=== PATIENT | female | born 1955 | race Caucasian/White ===

== ENCOUNTER 2017-08-15 13:45 | Outpatient (CLI) | payer MEDICAID ==
[~2017-08-15 13:45] MED LIST: ALPRAZOLAM1 MG ORAL; LEVOTHYROXINE100 MCG ORAL; QUETIAPINE FUM100 MG ORAL
[2017-08-15 14:00] VITALS: BP 113/80
--- NOTE | 2017-08-16 16:33 | GI Initial Consult Note ---
History of Present Illness General Date patient seen: August 15, 2017 Time patient seen: 15:00 Referring physician: JENNY Reason for Consultation: PANCREATIC CYST Present Illness HPI Patient is a 61 year old female with history of pancreatic mass, 2.2 to 2.4 mm cystic lesion. Hx of Hep C treatment, Yessenia x 2 mos apr 2015. Presents today with abdominal pain accompanied with some nausea. Denies any unintentional weight loss or changes in dietary habits. No signs of abuse or neglect. Patient is not fall risk. Home Meds Reported Medications Levothyroxine Sodium* (LEVOTHYROXINE SODIUM*) 100 Mcg Tablet, 150 ORAL DAILY, TAB Take in the morning on an empty stomach, at least 30 minutes before food. 01/12/16 Alprazolam* (XANAX*) 1 Mg Tablet, ORAL TID, TAB 01/12/16 Discontinued Reported Medications Quetiapine Fumarate* (SEROQUEL*) 100 Mg Tablet, ORAL DAILY, TAB 01/12/16 Med list reviewed/reconciled: Yes Allergies: Coded Allergies: No Known Allergies (Unverified , 01/12/16) Patient History PMH Narrative depression anxiety insomnia Hep C 1993 hypothyroidism s/p blood transfusion for labor bleed - 1993 PSHx tonsillectomy partial hysterectomy Family History Narrative Father - pancreatic CA, passed at age 66. Social History Narrative denies smoking - quit 45 years ago. ETOH 2/w medical MJ Review of Systems All Other Systems: negative except mentioned in HPI Physical Exam Vital Signs Date Time Temp Pulse Resp B/P (MAP) Pulse Ox O2 Delivery O2 Flow Rate FiO2 08/15/17 14:00 98.1 83 16 113/80 96 98.1 Sp02 EP Interpretation: reviewed, normal General Appearance: well appearing, no apparent distress, alert Head: normocephalic EENT: PERRL/EOMI, normal ENT inspection Neck: supple Respiratory: normal breath sounds, no respiratory distress Cardiovascular: normal rate Gastrointestinal: normal inspection, non tender, soft, normal bowel sounds, non -distended Rectal: deferred Genitourinary: no CVA tenderness Musculoskeletal: normal inspection, back normal Neurologic: normal inspection, alert, oriented x3, responsive Psychiatric: normal inspection, judgement/insight normal, memory normal Skin: normal inspection, normal color, no rash, warm/dry, palpation normal, well hydrated Lymphatic: normal inspection, no adenopathy GI: Plan Problems: (1) Hepatitis C (2) Pancreatic cyst (3) Hypothyroidism (4) Depression (5) Anxiety Plan Hx of elevated CA19-9 EUS scheduled 08/15/17. - NPO @ [place] day prior procedure. Seen with Dr. Aguilar. Thank you for this patient referral. Chela Velazquez NP August 16, 2017 16:33
== END 2017-08-15 14:15 | disposition home or self-care (01) ==
LOC: PAN 13:45
DX: K86.2 Cyst of pancreas (principal); Z86.19 Personal history of other infectious and parasitic diseases; E03.9 Hypothyroidism, unspecified; F32.9 Major depressive disorder, single episode, unspecified; F41.9 Anxiety disorder, unspecified; Z90.710 Acquired absence of both cervix and uterus; Z80.8 Family history of malignant neoplasm of other organs or systems
CPT/HCPCS: 99201

== ENCOUNTER 2017-09-25 08:21 | Day surgery (SDC) | payer MEDICAID, MEDICARE ==
[~2017-09-25] VITALS: Ht 175.3 cm; Wt 54.0 kg
[2017-09-25] VITALS (10 sets, daily range): BP systolic 98–113; BP diastolic 51–64
--- NOTE | 2017-09-25 06:29 | Anethesia Preoperative Eval ---
Anesthesia Pre-op PMH/ROS General Date of Evaluation: Sep 25, 2017 Time of Evaluation: 06:25 Anesthesiologist: santiago ASA Score: ASA 3 Mallampati Score Class I : Soft palate, uvula, fauces, pillars visible Class II: Soft palate, uvula, fauces visible Class III: Soft palate, base of uvula visible Class IV: Only hard plate visible Mallampati Classification: Class II Surgeon: nilo Diagnosis: pancreatic mass Surgical Procedure: eus Anesthesia History: none Social History: smoking - former smoker , alcohol use, drug use - medical marijuana Family History: no anesthesia problems Allergies: Coded Allergies: No Known Allergies (Unverified , 01/12/16) Medications: see eMAR Past Medical History Cardiovascular: Denies: HTN, CAD, [place], valve dz, arrhythmia, other Pulmonary: Denies: asthma, COPD, LULI, other Gastrointestinal/Genitourinary: Reports: other - pancreatic mass/cyst, hep c, esophagitis, gastritis, hemorrhoids, endometriosis Neurologic/Psychiatric: Reports: depression/anxiety Endocrine: Reports: hypothyroidism HEENT: Reports: other - throat disorder PSxH Narrative: tonsillectomy, hysterectomy, pancreatectomy Anesthesia Pre-op Phys. Exam Physician Exam Constitutional: NAD Neurologic: CN 2-12 intact Cardiovascular: RRR Respiratory: CTA Gastrointestinal: S/NT/ND Airway Exam Mallampati Score: Class II MO: full Neck: supple TMD: 2fb ROM: full Anesthesia Pre-op A/P Risk Assessment & Plan Assessment: asa3 Plan: mac Status Change Before Surgery: No Pre-Antibiotics Drug: Britta Coe MD Sep 25, 2017 06:29
[~2017-09-25 08:21] MED LIST changes: +Atropine Inj 1mg/10ml Syr IV PRN; +DiphenhydrAMINE 50mg/ml Inj IVP PRN; +Midazolam 2mg/2ml Inj IVP PRN; +fentaNYL 100 mcg/2 mL IV PRN
[2017-09-25] MEDS ORDERED: Lidocaine 1% MPF 10mg/ml 5ml ONE (09:00)
[2017-09-25] MEDS ORDERED: Propofol 200mg/20ml IV ONE (09:00)
[2017-09-25] MEDS ORDERED: Midazolam 2mg/2ml Inj ONE (09:00)
[2017-09-25] MEDS ORDERED: QUETIAPINE FUMA25 MG ORAL (09:11)
[2017-09-25] MEDS ORDERED: NORCO 10-325 T1 EACH ORAL (09:13)
[2017-09-25] MEDS ORDERED: COLACE100 MG ORAL (09:14)
--- NOTE | 2017-09-25 09:20 | Pre-Procedure Note/Attestation ---
Pre-Procedure Note/Attestation Complete Prior to Procedure Planned Procedure: not applicable Procedure Narrative: eus Indications for Procedure Pre-Operative Diagnosis: panc cyst Attestation I attest that I discussed the nature of the procedure; its benefits; risks and complications; and alternatives (and the risks and benefits of such alternatives ), prior to the procedure, with the patient (or the patient's legal used equipment sales representative). I attest that, if there was a reasonable possibility of needing a blood transfusion, the patient (or the patient's legal used equipment sales representative) was given the [facility] standardized written summary, pursuant to the [place] Blood Safety Act ([place] Health and Safety Code # 1645, as amended). I attest that I re-evaluated the patient just prior to the surgery and that there has been no change in the patient's H&P, except as documented below: Prashanth Aguilar MD Sep 25, 2017 09:20
--- NOTE | 2017-09-25 09:20 | Short Stay Surgery H&P ---
History of Present Illness History of Present Illness Chief Complaint see recent consult note HPI Leyla Rodríguez is a 61 year old female who was admitted on for Pancreatic Mass Patient History Allergies: Coded Allergies: No Known Allergies (Unverified , 01/12/16) Medication History Scheduled Alprazolam* (Xanax*), Unknown Dose ORAL TID, (Reported) Docusate Sodium* (Colace*), 100 MG ORAL THREE TIMES A DAY, (Reported) Levothyroxine Sodium* (Levothyroxine Sodium*), 150 ORAL DAILY, (Reported) Quetiapine Fumarate* (Seroquel*), 75 MG ORAL HS, (Reported) Scheduled PRN Hydrocodone Bit/Acetaminophen 10-325* ([place] 10-325*), 1 TAB ORAL Q6H PRN for For Pain, (Reported) Physical Exam Vital Signs Last Vital Signs Date Time Temp Pulse Resp B/P (MAP) Pulse Ox O2 Delivery O2 Flow Rate FiO2 09/25/17 09:07 97.0 52 20 110/51 99 Room Air 97.0 Plan Attestation Are the patient's medical conditions optimized for surgery? Prashanth Aguilar MD Sep 25, 2017 09:20
--- NOTE | 2017-09-25 10:05 | Endoscopy Procedure Note ---
Endoscopy Procedure Note General Indication for Procedure: panc cyst Procedures Performed: other - EUS Operative Findings/Diagnosis: same Specimen: none Pt Tolerated Procedure Well: Yes Estimated Blood Loss: none Anesthesia Anesthesiologist: santiago Anesthesia: MAC Inserted Devices Implant(s) used?: No GI Core Measures 50 yrs or older w/o bx or poly: Not Applicable 10yrs. F/U not recommended: Not Applicable Prashanth Aguilar MD Sep 25, 2017 10:05
--- NOTE | 2017-09-25 16:15 | Procedure Note ---
DATE OF PROCEDURE: 09/25/2017 SURGEON: Prashanth Aguilar M.D. ANESTHESIOLOGIST: Dr. Dutta. PROCEDURE: Endoscopic ultrasound. ANESTHESIA: Per Dr. Dutta. INSTRUMENT: Olympus EUS scope. The procedure, risks, benefits, and possible consequences, including hemorrhage, aspiration, perforation and infection, and alternative treatments, were explained to the patient/legal guardian by Dr. Prashanth Aguilar and the patient/legal guardian understood and accepted these risks. INDICATION: Pancreatic cyst. DESCRIPTION OF PROCEDURE: After informed consent was obtained and the patient was adequately sedated, then the EUS scope was advanced from the mouth into the second portion of the duodenum and pancreatic parenchyma was carefully examined through the gastroduodenal mucosa. The patient had evidence of partial pancreatectomy. There was no pancreatic tissue which was seen in the body of the stomach when the EUS was scoped in the body of the stomach. There was significant dilation of the vessels, especially the one which was going to the left kidney of unknown significance. Then, the scope was advanced to the duodenal bulb and second portion of the duodenum when the head of the pancreas was examined. Pancreatic common bile duct was measured to be roughly about 7 mm. There was no obvious filling defect in the common bile duct. There was no obvious pancreatic duct dilatation. The limited view of the pancreatic head with prior pancreatic surgery, I do not know the extent of it, but there was not much of pancreatic tissue left. There was no obvious mass, cyst, or any other pathology which was seen in the remaining pancreatic parenchymal tissue. At this time, the EUS scope was retrieved and the procedure was terminated. SUMMARY OF FINDINGS: 1. Prior history of partial pancreatectomy. 2. No obvious pancreatic cyst or any other pathology in the remaining pancreatic parenchyma. 3. Common bile duct was roughly about 7 mm without any filling defect. RECOMMENDATIONS: The patient to follow closely. At this time, there was no obvious mass, cyst, or tumor seen. The patient might benefit from supplement of Creon or pancreatic digestive enzymes if she developed some symptoms of maldigestion. Prashanth Aguilar M.D. DR: Luigi JOB#: [id number] CC:
--- NOTE | 2017-09-25 17:06 | Immediate Post-Op Evaluation ---
Immediate Post-Op Evalulation Immediate Post-Op Evalulation Procedure: eus Date of Evaluation: Sep 25, 2017 Time of Evaluation: 10:20 IV Fluids: 300ml 0.9ns Blood Products: none Estimated Blood Loss: negligible Blood Pressure Systolic: 106 Blood Pressure Diastolic: 64 Pulse Rate: 53 Respiratory Rate: 18 O2 Sat by Pulse Oximetry: 99 Temperature (Fahrenheit): 97.3 Pain Score (1-10): 0 Nausea: No Vomiting: No Complications none Patient Status: awake, reacts, patent Hydration Status: adequate Drug: Britta Coe MD Sep 25, 2017 17:06
--- NOTE | 2017-09-25 17:20 | 48 Hour Post Anesthesia Eval ---
Post Anesthesia Evaluation Procedure: eus Date of Evaluation: Sep 25, 2017 Time of Evaluation: 10:22 Blood Pressure Systolic: 109 0: 64 Pulse Rate: 45 Respiratory Rate: 18 Temperature (Fahrenheit): 97.3 O2 Sat by Pulse Oximetry: 99 Airway: patent Nausea: No Vomiting: No Pain Intensity: 0 Hydration Status: adequate Cardiopulmonary Status: stable Mental Status/LOC: patient returned to baseline Post-Anesthesia Complications: none Follow-up care needed: N/A Britta De La Rosa MD Sep 25, 2017 17:20
== END 2017-09-25 11:50 | disposition home or self-care (01) ==
LOC: GAS 08:21
DX: K86.2 Cyst of pancreas (principal); Z86.19 Personal history of other infectious and parasitic diseases; F32.9 Major depressive disorder, single episode, unspecified; F41.9 Anxiety disorder, unspecified; Z90.710 Acquired absence of both cervix and uterus; Z87.891 Personal history of nicotine dependence
CPT/HCPCS: 43259; J2250; J2704; 94003; 94150